=== PATIENT | male | born 1960 | race Caucasian/White ===

== ENCOUNTER 2019-03-23 05:55 | Day surgery (SDC) | payer BC, OTHER ==
[~2019-03-23] VITALS: Ht 167.6 cm; Wt 72.7 kg
[2019-03-23 06:04] VITALS: BP 160/79
[2019-03-23] MEDS ORDERED: NO HOME MEDS (06:21)
[2019-03-23] MEDS ORDERED: fentaNYL/PF 50MCG/1 ML 2ML syringe ONE (06:22)
[2019-03-23] MEDS ORDERED: MIDAZolam 5mg/5ml vial ONE (06:23)
[2019-03-23] MEDS ORDERED: LIDOcaine Viscous 15ml cup ONE (06:23)
[2019-03-23 07:30] VITALS: BP 156/82
[2019-03-23 07:40] VITALS: BP 147/78
[2019-03-23 07:50] VITALS: BP 142/78
[2019-03-23 08:00] VITALS: BP 139/81
== END 2019-03-23 08:05 | disposition home or self-care (01) ==
LOC: GI LAB 05:55
PROVIDERS: ATTEND Internal Medicine Gastroenterology
DX: Z12.11 Encounter for screening for malignant neoplasm of colon (principal); Z86.010 Personal history of colon polyps
CPT/HCPCS: 45378; 99152; J2250; J3010; J7040; 99153; A4620

== ENCOUNTER 2020-01-05 09:52 | Outpatient (CLI) | payer BC ==
[~2020-01-05 09:52] MED LIST: NO HOME MEDS
[2020-01-05 10:44] LABS: BASOPHILS # (AUTO) 0.1 X10'3 (0-0.2); BASOPHILS % (AUTO) 0.8 % (0-1); EOSINOPHILS # (AUTO) 0.1 X10'3 (0-0.9); EOSINOPHILS % (AUTO) 1.7 % (0-6); HEMATOCRIT 44.6 % (42.0-52.0); HEMOGLOBIN 15.2 g/dl (14.0-17.9); LYMPHOCYTES # (AUTO) 2.4 X10'3 (1.1-4.8); LYMPHOCYTES % (AUTO) 34.7 % (21-51); MEAN CORPUSCULAR HEMOGLOBIN 30.1 PG (27.0-31.0); MEAN CORPUSCULAR HGB CONC 34.1 g/dL (33.0-36.5); MEAN CORPUSCULAR VOLUME 88.3 FL (78-98); MEAN PLATELET VOLUME 8.3 FL (7.4-10.4); MONOCYTES # (AUTO) 0.6 X10'3 (0-0.9); MONOCYTES % (AUTO) 8.8 % (2-12); NEUTROPHILS # (AUTO) 3.7 X10'3 (1.8-7.7); PLATELET COUNT 223 X10'3 (140-440); RED BLOOD COUNT 5.05 X10'6 (4.70-6.10); RED CELL DISTRIBUTION WIDTH 12.5 % (11.5-14.5); WHITE BLOOD COUNT 6.8 X10'3 (4.5-11.0)
[2020-01-05 10:47] LABS: CLARITY,URINE CLEAR (Clear); COLOR,URINE YELLOW (Yellow); GLUCOSE, URINE NEGATIVE (Neg); KETONES,URINE NEGATIVE (Neg); LEUKOCYTE ESTERASE ,URINE NEGATIVE (Neg); NITRITES, URINE NEGATIVE (Neg); OCCULT BLOOD,URINE SMALL (Neg); PROTEIN,URINE NEGATIVE (Neg); UROBILINOGEN,URINE 0.2 E.U/dL (0.2-1.0)
[2020-01-05 10:48] LABS: UA COLLECTION TYPE NON-SPECIFIED
[2020-01-05 10:51] LABS: HEMOGLOBIN A1C 6.4 % (4.5-6.2)
[2020-01-05 10:57] LABS: BACTERIA,URINE FEW /HPF (Neg); RBC,URINE 0-2 /HPF (0-2); SQUAMOUS EPITHELIAL CELL,UR FEW /LPF (FEW); WBC,URINE 0-4 /HPF (0-4)
[2020-01-05 10:58] LABS: MUCUS STRANDS FEW /LPF (Neg)
[2020-01-05 11:04] LABS: ALANINE AMINOTRANSFERASE 47 U/L (12-78); ALBUMIN 3.8 G/DL (3.4-5.0); ALKALINE PHOSPHATASE 71 IU/L (46-116); ANION GAP 8 (8-16); ASPARTATE AMINO TRANSFERASE 30 U/L (10-37); BILIRUBIN,TOTAL 0.7 MG/DL (0.1-1.0); BLOOD UREA NITROGEN 23 MG/DL (7-18); BUN/CREATININE RATIO 21.1 (5.4-32.0); CALCIUM 9.1 MG/DL (8.5-10.1); CHLORIDE 104 MMOL/L (99-107); CHOL/HDL RATIO 7.1 (0.00-4.99); CHOLESTEROL 262 MG/DL (0-200); CREATININE 1.09 MG/DL (0.60-1.10); GLUCOSE 112 MG/DL (70-104); HDL CHOLESTEROL 37 MG/DL (35-60); LDL CHOLESTEROL 193 MG/DL (50-100); POTASSIUM 4.1 MMOL/L (3.5-5.1); SODIUM 138 MMOL/L (135-145); TOTAL CARBON DIOXIDE 26.4 MMOL/L (24-32); TOTAL PROTEIN 7.7 G/DL (6.4-8.2); TRIGLYCERIDES 130 MG/DL (20-135); eGFR 69 ML/MIN
== END 2020-01-05 23:59 | disposition home or self-care (01) ==
LOC: LAB 09:52
PROVIDERS: ATTEND Family Medicine
DX: F32.9 Major depressive disorder, single episode, unspecified (principal); R31.9 Hematuria, unspecified; R63.5 Abnormal weight gain; M25.50 Pain in unspecified joint; R39.198 Other difficulties with micturition; E29.1 Testicular hypofunction; Z76.89 Persons encountering health services in other specified circumstances
CPT/HCPCS: 36415; 80053; 80061; 81001; 83036; 84402; 84403; 84439; 84443; 85025

== ENCOUNTER 2020-04-11 10:36 | Outpatient (CLI) | payer BC ==
[2020-04-11 11:30] LABS: CHOL/HDL RATIO 6.5 (0.00-4.99); CHOLESTEROL 259 MG/DL (0-200); HDL CHOLESTEROL 40 MG/DL (35-60); LDL CHOLESTEROL 196 MG/DL (50-100); TRIGLYCERIDES 184 MG/DL (20-135)
== END 2020-04-11 23:59 | disposition home or self-care (01) ==
LOC: LAB 10:36
PROVIDERS: ATTEND Family Medicine
DX: R73.03 Prediabetes (principal)
CPT/HCPCS: 36415; 80061; 82043; 82570; 83036

== ENCOUNTER 2020-05-09 10:50 | Outpatient (CLI) | payer BC | END 2020-05-09 23:59 | disposition home or self-care (01) | LOC: RAD 10:50 | PROVIDERS: ATTEND Family Medicine | DX: M48.061 Spinal stenosis, lumbar region without neurogenic claudication (principal) | CPT/HCPCS: 72148 ==

== ENCOUNTER 2020-07-25 09:20 | Outpatient (CLI) | payer BC ==
[2020-07-25 10:09] LABS: HEMOGLOBIN A1C 5.9 % (4.5-6.2)
[2020-07-25 10:16] LABS: ALANINE AMINOTRANSFERASE 41 U/L (12-78); ALBUMIN 3.9 G/DL (3.4-5.0); ALKALINE PHOSPHATASE 87 IU/L (46-116); ANION GAP 9 (8-16); ASPARTATE AMINO TRANSFERASE 23 U/L (10-37); BILIRUBIN,TOTAL 0.6 MG/DL (0.1-1.0); BLOOD UREA NITROGEN 30 MG/DL (7-18); BUN/CREATININE RATIO 31.3 (5.4-32.0); CALCIUM 9.3 MG/DL (8.5-10.1); CHLORIDE 104 MMOL/L (99-107); CREATININE 0.96 MG/DL (0.60-1.10); GLUCOSE 99 MG/DL (70-104); HDL CHOLESTEROL 50 MG/DL (35-60); LDL CHOLESTEROL 134 MG/DL (50-100); POTASSIUM 4.1 MMOL/L (3.5-5.1); SODIUM 142 MMOL/L (135-145); TOTAL PROTEIN 7.7 G/DL (6.4-8.2); TRIGLYCERIDES 112 MG/DL (20-135); eGFR 80 ML/MIN
[2020-07-25 11:57] LABS: CHOL/HDL RATIO 4.1 (0.00-4.99); CHOLESTEROL 206 MG/DL (0-200)
== END 2020-07-25 23:59 | disposition home or self-care (01) ==
LOC: LAB 09:20
PROVIDERS: ATTEND Family Medicine
DX: E55.9 Vitamin D deficiency, unspecified (principal); E78.5 Hyperlipidemia, unspecified; R73.03 Prediabetes
CPT/HCPCS: 36415; 80053; 80061; 82306; 83036

== ENCOUNTER 2020-08-09 14:21 | Outpatient (CLI) | payer BC ==
[2020-08-09 15:43] LABS: BASOPHILS # (AUTO) 0.1 X10'3 (0-0.2); BASOPHILS % (AUTO) 0.7 % (0-1); EOSINOPHILS # (AUTO) 0.1 X10'3 (0-0.9); EOSINOPHILS % (AUTO) 0.7 % (0-6); HEMATOCRIT 43.6 % (42.0-52.0); HEMOGLOBIN 14.7 g/dl (14.0-17.9); LYMPHOCYTES # (AUTO) 2.5 X10'3 (1.1-4.8); LYMPHOCYTES % (AUTO) 28.1 % (21-51); MEAN CORPUSCULAR HGB CONC 33.7 g/dL (33.0-36.5); MEAN CORPUSCULAR VOLUME 89.3 FL (78-98); MEAN PLATELET VOLUME 8.4 FL (7.4-10.4); MONOCYTES # (AUTO) 0.7 X10'3 (0-0.9); MONOCYTES % (AUTO) 7.3 % (2-12); NEUTROPHILS # (AUTO) 5.7 X10'3 (1.8-7.7); NEUTROPHILS % (AUTO) 63.2 % (42-75); PLATELET COUNT 265 X10'3 (140-440); RED BLOOD COUNT 4.88 X10'6 (4.70-6.10); RED CELL DISTRIBUTION WIDTH 12.5 % (11.5-14.5)
[2020-08-09 16:00] LABS: ALANINE AMINOTRANSFERASE 41 U/L (12-78); ALBUMIN/GLOBULIN RATIO 1.1 (1.1-1.5); ALKALINE PHOSPHATASE 92 IU/L (46-116); ANION GAP 8 (8-16); ASPARTATE AMINO TRANSFERASE 21 U/L (10-37); BILIRUBIN,TOTAL 0.5 MG/DL (0.1-1.0); BLOOD UREA NITROGEN 18 MG/DL (7-18); BUN/CREATININE RATIO 19.6 (5.4-32.0); CALCIUM 10.3 MG/DL (8.5-10.1); CHLORIDE 103 MMOL/L (99-107); CREATININE 0.92 MG/DL (0.60-1.10); GLUCOSE 102 MG/DL (70-104); POTASSIUM 4.1 MMOL/L (3.5-5.1); SODIUM 139 MMOL/L (135-145); TOTAL CARBON DIOXIDE 27.8 MMOL/L (24-32); TOTAL PROTEIN 7.8 G/DL (6.4-8.2); eGFR 84 ML/MIN
== END 2020-08-09 23:59 | disposition home or self-care (01) ==
LOC: LAB 14:21
DX: R31.9 Hematuria, unspecified (principal)
CPT/HCPCS: 36415; 80053; 84153; 84154; 85025; 87088

== ENCOUNTER 2020-08-14 08:33 | Outpatient (CLI) | payer BC ==
[2020-08-14] MEDS ORDERED: iohexol 300mg/ml 100ml inj. ONE (09:04)
== END 2020-08-14 23:59 | disposition home or self-care (01) ==
LOC: 64 CT 08:33
PROVIDERS: ATTEND Family Medicine
DX: R31.9 Hematuria, unspecified (principal)
CPT/HCPCS: 74178; Q9967

== ENCOUNTER 2020-11-22 11:20 | Outpatient (CLI) | payer BC ==
[2020-11-22 11:56] LABS: BASOPHILS # (AUTO) 0.1 X10'3 (0-0.2); BASOPHILS % (AUTO) 0.7 % (0-1); EOSINOPHILS # (AUTO) 0.1 X10'3 (0-0.9); EOSINOPHILS % (AUTO) 0.7 % (0-6); HEMATOCRIT 44.5 % (42.0-52.0); HEMOGLOBIN 15.2 g/dl (14.0-17.9); LYMPHOCYTES % (AUTO) 20.9 % (21-51); MEAN CORPUSCULAR HEMOGLOBIN 30.5 PG (27.0-31.0); MEAN CORPUSCULAR HGB CONC 34.1 g/dL (33.0-36.5); MEAN CORPUSCULAR VOLUME 89.3 FL (78-98); MEAN PLATELET VOLUME 8.4 FL (7.4-10.4); MONOCYTES # (AUTO) 0.8 X10'3 (0-0.9); MONOCYTES % (AUTO) 7.8 % (2-12); NEUTROPHILS # (AUTO) 6.8 X10'3 (1.8-7.7); NEUTROPHILS % (AUTO) 69.9 % (42-75); PLATELET COUNT 251 X10'3 (140-440); RED BLOOD COUNT 4.99 X10'6 (4.70-6.10); RED CELL DISTRIBUTION WIDTH 12.3 % (11.5-14.5); WHITE BLOOD COUNT 9.7 X10'3 (4.5-11.0)
[2020-11-22 12:23] LABS: ALANINE AMINOTRANSFERASE 39 U/L (12-78); ALBUMIN 4.1 G/DL (3.4-5.0); ALKALINE PHOSPHATASE 97 IU/L (46-116); ANION GAP 11 (8-16); ASPARTATE AMINO TRANSFERASE 21 U/L (10-37); BILIRUBIN,TOTAL 0.5 MG/DL (0.1-1.0); BLOOD UREA NITROGEN 20 MG/DL (7-18); BUN/CREATININE RATIO 17.1 (5.4-32.0); CALCIUM 9.7 MG/DL (8.5-10.1); CHLORIDE 103 MMOL/L (99-107); CHOL/HDL RATIO 5.6 (0.00-4.99); CHOLESTEROL 234 MG/DL (0-200); CREATININE 1.17 MG/DL (0.60-1.10); GLUCOSE 114 MG/DL (70-104); HDL CHOLESTEROL 42 MG/DL (35-60); LDL CHOLESTEROL 158 MG/DL (50-100); POTASSIUM 4.1 MMOL/L (3.5-5.1); SODIUM 141 MMOL/L (135-145); TOTAL CARBON DIOXIDE 27.3 MMOL/L (24-32); TOTAL PROTEIN 8.1 G/DL (6.4-8.2); TRIGLYCERIDES 214 MG/DL (20-135); eGFR 63 ML/MIN
== END 2020-11-22 23:59 | disposition home or self-care (01) ==
LOC: LAB 11:20
PROVIDERS: ATTEND Family Medicine
DX: I10 Essential (primary) hypertension (principal); R31.0 Gross hematuria; E55.9 Vitamin D deficiency, unspecified; E78.5 Hyperlipidemia, unspecified
CPT/HCPCS: 36415; 80053; 80061; 82306; 84153; 84402; 84403; 84443; 85025

== ENCOUNTER 2020-12-31 14:00 | Outpatient (CLI) | payer BC ==
[2020-12-31 15:09] LABS: ANION GAP 11 (8-16); BLOOD UREA NITROGEN 19 MG/DL (7-18); BUN/CREATININE RATIO 19.8 (5.4-32.0); CALCIUM 9.4 MG/DL (8.5-10.1); CHLORIDE 104 MMOL/L (99-107); CHOL/HDL RATIO 4.6 (0.00-4.99); CHOLESTEROL 213 MG/DL (0-200); CREATININE 0.96 MG/DL (0.60-1.10); GLUCOSE 90 MG/DL (70-104); HDL CHOLESTEROL 46 MG/DL (35-60); LDL CHOLESTEROL 133 MG/DL (50-100); POTASSIUM 3.9 MMOL/L (3.5-5.1); SODIUM 141 MMOL/L (135-145); TOTAL CARBON DIOXIDE 26.2 MMOL/L (24-32); TRIGLYCERIDES 213 MG/DL (20-135); eGFR 80 ML/MIN
== END 2020-12-31 23:59 | disposition home or self-care (01) ==
LOC: LAB 14:00
DX: E78.5 Hyperlipidemia, unspecified (principal); N28.9 Disorder of kidney and ureter, unspecified
CPT/HCPCS: 36415; 80048; 80061

== ENCOUNTER 2021-01-21 10:19 | Outpatient (CLI) | payer BC ==
[2021-01-21 11:13] LABS: CLARITY,URINE CLEAR (Clear); COLOR,URINE YELLOW (Yellow); GLUCOSE, URINE NEGATIVE (Neg); KETONES,URINE NEGATIVE (Neg); LEUKOCYTE ESTERASE ,URINE NEGATIVE (Neg); NITRITES, URINE NEGATIVE (Neg); OCCULT BLOOD,URINE NEGATIVE (Neg); PH,URINE 6.5 (4.8-8.0); PROTEIN,URINE NEGATIVE (Neg); UROBILINOGEN,URINE 0.2 E.U/dL (0.2-1.0)
[2021-01-21 11:20] LABS: UA COLLECTION TYPE CLN CATCH MIDSTREAM
== END 2021-01-21 23:59 | disposition home or self-care (01) ==
LOC: LAB 10:19
PROVIDERS: ATTEND Family Medicine
DX: R36.1 Hematospermia (principal); R31.0 Gross hematuria
CPT/HCPCS: 81003

== ENCOUNTER → 2021-02-03 | Outpatient (CLI) | payer OTHER | END | disposition home or self-care (01) | LOC: LAB 10:37 | DX: Z00.00 Encounter for general adult medical examination without abnormal findings (principal) ==

== ENCOUNTER 2021-05-10 09:29 | Outpatient (CLI) | payer BC ==
[2021-05-10 10:35] LABS: ALBUMIN 3.8 G/DL (3.4-5.0); ANION GAP 8 (8-16); BLOOD UREA NITROGEN 22 MG/DL (7-18); BUN/CREATININE RATIO 23.9 (5.4-32.0); CALCIUM 9.2 MG/DL (8.5-10.1); CHLORIDE 106 MMOL/L (99-107); CREATININE 0.92 MG/DL (0.60-1.10); GLUCOSE 118 MG/DL (70-104); POTASSIUM 4.3 MMOL/L (3.5-5.1); SODIUM 142 MMOL/L (135-145); TOTAL CARBON DIOXIDE 28.2 MMOL/L (24-32); eGFR 84 ML/MIN
== END 2021-05-10 23:59 | disposition home or self-care (01) ==
LOC: LAB 09:29
PROVIDERS: ATTEND Urology
DX: Z01.812 Encounter for preprocedural laboratory examination (principal); R31.0 Gross hematuria
CPT/HCPCS: 36415; 80048

== ENCOUNTER 2021-05-20 08:24 | Outpatient (CLI) | payer BC ==
[2021-05-20] MEDS ORDERED: iohexol 300mg/ml 100ml inj. ONE (08:34)
== END 2021-05-20 23:59 | disposition home or self-care (01) ==
LOC: 64 CT 08:24
PROVIDERS: ATTEND Urology
DX: N40.0 Benign prostatic hyperplasia without lower urinary tract symptoms (principal); N13.30 Unspecified hydronephrosis; K40.20 Bilateral inguinal hernia, without obstruction or gangrene, not specified as recurrent; K86.89 Other specified diseases of pancreas; K76.0 Fatty (change of) liver, not elsewhere classified; K76.89 Other specified diseases of liver
CPT/HCPCS: 74178; Q9967

== ENCOUNTER 2021-05-29 09:00 | Outpatient (CLI) | payer BC | END 2021-05-29 23:59 | disposition home or self-care (01) | LOC: LAB 09:00 | PROVIDERS: ATTEND Family Medicine | DX: N42.9 Disorder of prostate, unspecified (principal) | CPT/HCPCS: 36415; 84153 ==

== ENCOUNTER 2021-08-27 10:02 | Outpatient (CLI) | payer BC | END 2021-08-27 23:59 | disposition home or self-care (01) | LOC: LAB 10:02 | PROVIDERS: ATTEND Urology | DX: N42.9 Disorder of prostate, unspecified (principal) | CPT/HCPCS: 36415; 84153 ==

== ENCOUNTER 2024-06-24 11:43 | Outpatient (CLI) | payer BC ==
[2024-06-24 12:37] LABS: BILIRUBIN,URINE NEGATIVE (Neg); CLARITY,URINE CLOUDY (Clear); COLOR,URINE YELLOW (Yellow); GLUCOSE, URINE NEGATIVE (Neg); KETONES,URINE NEGATIVE (Neg); LEUKOCYTE ESTERASE ,URINE NEGATIVE (Neg); NITRITES, URINE NEGATIVE (Neg); OCCULT BLOOD,URINE NEGATIVE (Neg); PROTEIN,URINE NEGATIVE (Neg); UROBILINOGEN,URINE 0.2 E.U/dL (0.2-1.0)
[2024-06-24 12:42] LABS: UA COLLECTION TYPE NON-SPECIFIED
[2024-06-24 12:48] LABS: BASOPHILS # (AUTO) 0.1 X10'3 (0-0.2); BASOPHILS % (AUTO) 0.8 % (0-1); EOSINOPHILS # (AUTO) 0.2 X10'3 (0-0.9); EOSINOPHILS % (AUTO) 2.8 % (0-6); HEMATOCRIT 43.6 % (42.0-52.0); HEMOGLOBIN 15.1 g/dl (14.0-17.9); LYMPHOCYTES # (AUTO) 2.1 X10'3 (1.1-4.8); LYMPHOCYTES % (AUTO) 31.7 % (21-51); MEAN CORPUSCULAR HEMOGLOBIN 30.7 PG (27.0-31.0); MEAN CORPUSCULAR HGB CONC 34.7 g/dL (33.0-36.5); MEAN CORPUSCULAR VOLUME 88.4 FL (78-98); MEAN PLATELET VOLUME 8.3 FL (7.4-10.4); MONOCYTES # (AUTO) 0.5 X10'3 (0-0.9); MONOCYTES % (AUTO) 8.1 % (2-12); NEUTROPHILS # (AUTO) 3.8 X10'3 (1.8-7.7); NEUTROPHILS % (AUTO) 56.6 % (42-75); PLATELET COUNT 249 X10'3 (140-440); RED BLOOD COUNT 4.92 X10'6 (4.70-6.10); RED CELL DISTRIBUTION WIDTH 12.2 % (11.5-14.5); WHITE BLOOD COUNT 6.7 X10'3 (4.5-11.0)
[2024-06-24 13:00] LABS: BACTERIA,URINE FEW /HPF (Neg); MUCUS STRANDS NONE SEEN /LPF (Neg); RBC,URINE NONE SEEN /HPF (0-2); SQUAMOUS EPITHELIAL CELL,UR NONE SEEN /LPF (FEW); WBC,URINE 0-4 /HPF (0-4)
[2024-06-24 13:01] LABS: AMORPHOUS PHOSPHATES 3+
[2024-06-24 13:02] LABS: HEMOGLOBIN A1C 5.9 % (4.5-6.2)
[2024-06-24 13:21] LABS: ALBUMIN 3.9 G/DL (3.4-5.0); ANION GAP 8 (8-16); BILIRUBIN,TOTAL 0.5 MG/DL (0.1-1.0); BLOOD UREA NITROGEN 15 MG/DL (7-18); CALCIUM 9.7 MG/DL (8.5-10.1); CHLORIDE 104 MMOL/L (99-107); CREATININE 0.94 MG/DL (0.60-1.10); GLUCOSE 103 MG/DL (70-104); POTASSIUM 4.1 MMOL/L (3.5-5.1); SODIUM 142 MMOL/L (135-145); TOTAL CARBON DIOXIDE 29.6 MMOL/L (24-32); eGFR 81 ML/MIN
[2024-06-24 13:22] LABS: ALANINE AMINOTRANSFERASE 47 U/L (12-78); ALKALINE PHOSPHATASE 102 IU/L (46-116); ASPARTATE AMINO TRANSFERASE 25 U/L (10-37); CHOL/HDL RATIO 5.8 (0.00-4.99); CHOLESTEROL 256 MG/DL (0-200); FREE T4 (FREE THYROXINE) 0.87 NG/DL (0.73-1.40); HDL CHOLESTEROL 44 MG/DL (35-60); LDL CHOLESTEROL 167 MG/DL (50-100); THYROID STIMULATING HORMONE 0.74 ulU/ml (0.34-4.50); TRIGLYCERIDES 181 MG/DL (20-135)
[2024-06-26 13:36] LABS: TESTOSTERONE, SERUM 342 ng/dL (264-916)
[2024-06-28 17:14] LABS: TESTOSTERONE, FREE, DIRECT 10.1 pg/mL (6.6-18.1)
[2024-06-29 13:19] LABS: VITAMIN D, 1,25 DIHYDROXY 59.9 pg/mL (24.8-81.5)
== END 2024-06-24 23:59 | disposition home or self-care (01) ==
LOC: LAB 11:43
PROVIDERS: ATTEND Nurse Practitioner Family
DX: R73.03 Prediabetes (principal); E55.9 Vitamin D deficiency, unspecified; N23 Unspecified renal colic; M54.2 Cervicalgia; Z76.89 Persons encountering health services in other specified circumstances
CPT/HCPCS: 36415; 80053; 80061; 81001; 82652; 83036; 84402; 84403; 84439; 84443; 85025; 87088

== ENCOUNTER 2024-07-20 09:09 | Outpatient (CLI) | payer BC | END 2024-07-20 23:59 | disposition home or self-care (01) | LOC: RAD 09:09 | PROVIDERS: ATTEND Nurse Practitioner Family | DX: N28.1 Cyst of kidney, acquired (principal); N23 Unspecified renal colic | CPT/HCPCS: 71100; 72052; 76770 ==

== ENCOUNTER 2024-09-08 10:09 | Outpatient (CLI) | payer BC ==
[~2024-09-08 10:09] MED LIST changes: +iohexol 300mg/ml 100ml inj. ONE
[2024-09-08 11:38] LABS: ALANINE AMINOTRANSFERASE 50 U/L (12-78); ALBUMIN 3.9 G/DL (3.4-5.0); ALKALINE PHOSPHATASE 103 IU/L (46-116); ANION GAP 7 (8-16); ASPARTATE AMINO TRANSFERASE 28 U/L (10-37); BILIRUBIN,TOTAL 0.5 MG/DL (0.1-1.0); BLOOD UREA NITROGEN 16 MG/DL (7-18); BUN/CREATININE RATIO 16.7 (10.0-20.0); CALCIUM 9.4 MG/DL (8.5-10.1); CHLORIDE 107 MMOL/L (99-107); CREATININE 0.96 MG/DL (0.60-1.10); GLUCOSE 113 MG/DL (70-104); POTASSIUM 4.2 MMOL/L (3.5-5.1); SODIUM 144 MMOL/L (135-145); TOTAL PROTEIN 7.7 G/DL (6.4-8.2); eGFR 79 ML/MIN
[2024-09-09 08:32] LABS: TESTOSTERONE, SERUM 342 ng/dL (264-916)
== END 2024-09-08 23:59 | disposition home or self-care (01) ==
LOC: RAD 10:09
PROVIDERS: ATTEND Nurse Practitioner Family
DX: K76.0 Fatty (change of) liver, not elsewhere classified (principal); N40.0 Benign prostatic hyperplasia without lower urinary tract symptoms; N23 Unspecified renal colic; K76.89 Other specified diseases of liver; K40.90 Unilateral inguinal hernia, without obstruction or gangrene, not specified as recurrent
CPT/HCPCS: 36415; 74177; 80053; 84402; 84403; Q9967

== ENCOUNTER 2025-01-24 08:40 | Outpatient (CLI) | payer BC ==
[~2025-01-24 08:40] MED LIST changes: -iohexol 300mg/ml 100ml inj. ONE
[2025-01-24] MEDS ORDERED: GADOTERATE MEGLUMINE 7.5 MMOL/15 ML VIAL IV ONE (10:22)
--- NOTE | 2025-01-24 13:44 | RADIOLOGY REPORT ---
MRI Abdomen, MRCP without and with IV Contrast Exam Date: 01/24/2025 09:22 AM Comparison: CT CT ABDOMEN PELVIS W/ IV CONTRAST on DOS: 09/08/24, CT ABDOMEN PELVIS on DOS: 05/20/21, CT ABDOMEN PELVIS on DOS: 08/14/20 History: PAIN IN THORACIC SPINE/RUQ PAIN Technique: Multisequence multiplanar MRI images were obtained of the abomen. Images were obtained without and wi th intravenous contrast. MRCP including 3D SPACE, Radial 2D slabs and SPACE 3D MIP images Findings: Liver: Bilobar hepatic cysts. Hepatic steatosis. Hepatomegaly, 16.7 cm craniocaudal. Mildly nodular h epatic contours may represent changes of hepatic cirrhosis. Spleen: Unremarkable. Pancreas: The pancreas is normal in appearance without focal lesions. Gallbladder and ducts: Gallbladder is normal in appearance. The cystic duct, right and left hepatic d ucts, common hepatic duct, and common bile ducts are unremarkable. The pancreatic duct is within nor mal limits. Adrenal glands: Unremarkable. Kidneys: Normal enhancement without suspicious lesions or hydronephrosis. Visualized bowel: Grossly unremarkable. Vasculature: Unremarkable. Lymphadenopathy: No evidence for lymphadenopathy. Ascites: Absent. Musculoskeletal: Bone marrow signal is normal. IMPRESSION: Hepatic steatosis and hepatomegaly.
--- NOTE | 2025-01-24 13:46 | RADIOLOGY REPORT ---
PROCEDURE: MR MRI THORACIC SPINE INDICATION: PAIN IN THORACIC SPINE/RUQ PAIN Exam Date: 01/24/2025 08:48 AM COMPARISON: DI CERVICAL SPINE,FLEX EXTEN on DOS: 07/20/24, MRI LUMBAR SPINE on DOS: 05/09/20 TECHNIQUE: MRI thoracic spine without intravenous contrast. FINDINGS: The thoracic alignment is intact. The vertebral body heights are intact. There are degenerative en dplate changes with anterior and lateral osteophytes mid to lower thoracic levels. The thoracic cord signal and contour appear intact. There is no significant posterior disc disease, central canal or n eural foraminal narrowing. The visualized paraspinal soft tissues are otherwise unremarkable. IMPRESSION: 1. No significant posterior disc disease, central canal or neural foraminal narrowing. Mild degenerat ruiz disease. 2. Intact thoracic cord signal. No evidence of cord compression. HS:Y
== END 2025-01-24 23:59 | disposition home or self-care (01) ==
LOC: MRI 08:40
PROVIDERS: ATTEND Nurse Practitioner Family
DX: K76.0 Fatty (change of) liver, not elsewhere classified (principal); R16.0 Hepatomegaly, not elsewhere classified; K76.89 Other specified diseases of liver; M51.34 Other intervertebral disc degeneration, thoracic region; M25.78 Osteophyte, vertebrae; R10.11 Right upper quadrant pain
CPT/HCPCS: 72146; 74183; A9575

== ENCOUNTER 2025-03-06 08:03 | Outpatient (CLI) | payer BC ==
[2025-03-06] MEDS ORDERED: GADOTERATE MEGLUMINE 7.5 MMOL/15 ML VIAL IV ONE (11:01)
--- NOTE | 2025-03-06 11:39 | RADIOLOGY REPORT ---
Exam: MR MRI PELVIS History: PAIN IN THORACIC SPINE/RIGHT UPPER QUADRANT PAIN Comparison: MR MRI ABDOMEN on DOS: 01/24/25, CT CT ABDOMEN PELVIS W/ IV CONTRAST on DOS: 09/08/24, CT ABDOMEN PELVIS on DOS: 05/20/21, CT ABDOMEN PELVIS on DOS: 08/14/20 Technique: MRI pelvis was performed without and with intravenous contrast. Findings: Bladder: Unremarkable. Visualized bowel: Visualized portion of the bowel is grossly unremarkable without evidence for obstruction. Pelvic organs: Unremarkable Lymphadenopathy: No evidence for pelvic lymphadenopathy. Vasculature: There is normal enhancement of the pelvic vasculature. Ascites: Absent. Musculoskeletal: The bone marrow signal is preserved. Small bilateral fat containing inguinal hernias. IMPRESSION: Unremarkable pelvic MRI.
== END 2025-03-06 23:59 | disposition home or self-care (01) ==
LOC: MRI 08:03
PROVIDERS: ATTEND Nurse Practitioner Family
DX: K40.90 Unilateral inguinal hernia, without obstruction or gangrene, not specified as recurrent (principal); R10.11 Right upper quadrant pain; M54.6 Pain in thoracic spine
CPT/HCPCS: 72197; A9575